=== PATIENT | male | born 1995 | race Caucasian/White ===

== ENCOUNTER 2017-09-13 16:21 | Emergency (ER) | payer OTHER, SELFPAY ==
[2017-09-13 17:07] VITALS: BP 150/97; PULSE 92; RESP 12; TEMP 37.9; O2SAT 98
--- NOTE | 2017-09-13 17:17 | DI.REPORT_ITS ---
SYMPTOM/DIAGNOSIS: TRAUMA LAST NIGHT, PAIN PROXIMALLY, LIMITED ROM RIGHT HUMERUS: No soft tissue or bony abnormality is seen. SUMMARY: No acute abnormality is evident.
--- NOTE | 2017-09-13 17:20 | ED.GENADUL_ITS ---
Disposition Clinical Impression: Contusion, arm, upper Disposition: HOME Condition: Fair Instructions: Contusion in Adults (ED) Additional Instructions: Encourage rest, ice, elevation. Tylenol and/or ibuprofen as needed for discomfort. Avoid activities that cause increased discomfort. Try to work on range of motion gently. If you develop new or worsening symptoms please seek care urgently once again. I have asked her home care physical therapist help facilitate follow-up with primary care. If you develop any new or worsening symptoms please seek care urgently once again. Referrals: Primary Care Provider [Outside] Forms: Work Release Medical Decision Making - Radiology Data Radiology results: report reviewed X-ray reviewed by radiologist. They advised no acute abnormalities noted. - Medical Decision Making Patient presents today with chief complaint of proximal right humeral pain. Patient fell and struck her arm against a stair yesterday. Since that time has had diminished range of motion. Exam is concerning for pain and diminished range of motion particularly over the proximal right humerus. Patient is right- hand dominant. Will obtain x-ray to evaluate for possible fracture. Patient will be given Tylenol and ibuprofen to help with discomfort. Discussed this plan with the patient was in agreement. X-ray without significant abnormality. As there is no palpable muscular defect , no abnormalities on x-ray feel that this is likely contusion. Encourage rest , ice, elevation. And/or ibuprofen as needed for discomfort. 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 Advised he will need follow-up with primary care. Patient does not have primary care provider. I will have our home care physical therapist help facilitate with follow-up. Advised he should be seen in 2 weeks if pain persists. Advised he may seek care urgently if he develops new or worsening symptoms. All his questions and concerns were addressed and he is in agreement this plan. History of Present Illness - General Chief complaint: Orthopedic Stated complaint: ARM INJURY Time Seen by Provider: 09/13/17 17:00 Source: patient, RN notes reviewed Mode of arrival: ambulatory Limitations: no limitations - History of Present Illness Initial comments: Patient is a right-hand dominant 22-year-old male presenting today with chief complaint of right humerus pain. He reports that yesterday he tripped and fell. Reports falling forward and striking the proximal aspect of the right humerus against the step edge. He denies other injury the time the incident. Did not strike his head. Denies any neck pain. Denies any head pain, nausea vomiting. Denies any shortness of breath or chest pain. Denies any numbness or tingling in the right hand. Denies any pain with range of motion of the hand , wrist or elbow. States the pain is primarily with movement of the shoulder. Reports the shoulder has been quite weak today and that he is need to use the contralateral arm to help with movement. - Related Data Loratadine 1 tab PO DAILY #30 tab 11/11/14 Ibuprofen 600 mg PO DAILY PRN 09/13/17 Allergies Allergy/AdvReac Type Severity Reaction Status Date / Time No Known Allergies Allergy Unverified 09/13/17 17:11 Review of Systems Constitutional: no symptoms reported. denies: chills, fever, malaise Eyes: denies: vision change Respiratory: no symptoms reported Cardiovascular: denies: chest pain Gastrointestinal: denies: abdominal pain, nausea, vomiting Musculoskeletal: as per HPI Skin: denies: rash, lesions, change in color Neurological: as per HPI. denies: headache, numbness, paresthesias, abnormal gait Past Medical History - Past Medical History Medical history: no medical history Surgical history: no surgical history General Exam - General Limitations: no limitations General appearance: alert, in no apparent distress - Head Head exam: Present: atraumatic - Eye Eye exam: Present: normal apperance - Neck Neck exam: Present: normal inspection, full ROM. Absent: tenderness - Respiratory Respiratory exam: Present: normal lung sounds bilaterally. Absent: respiratory distress, chest wall tenderness - Cardiovascular Cardiovascular Exam: Present: regular rate, normal rhythm, normal heart sounds - Rectal Rectal exam: Present: deferred - Extremities Exam Extremities exam: Present: tenderness, normal capillary refill. Absent: normal inspection (Exam the patient's right upper extremity significant for pain on palpation over the lateral aspect of the proximal humerus. Range of motion is limited secondary to pain. Is able to forward elevate to approximately 75 . Full range of motion of the elbow, wrist, hands. 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 No sensory deficits. No swelling, ecchymosis or deformity is palpable.), full ROM , joint swelling - Neurological Exam Neurological exam: Present: alert, normal gait. Absent: motor sensory deficit - Psychiatric Psychiatric exam: Present: normal affect, normal mood - Skin Skin exam: Present: warm, dry, intact, normal color Course Vital Signs - 24 hr 09/13/17 17:07 Temperature 37.9 C H Pulse 92 H Respiratory 12 Rate Blood Pressure 150/97 Pulse Oximetry 98
--- NOTE | 2017-09-13 17:48 | DI.VRAD_ITS ---
EXAM: XR Right Humerus, 2 or More Views EXAM DATE/TIME: 09/13/2017 5:37 PM CLINICAL HISTORY: 22 years old, male; Pain and injury or trauma; Fall; Initial encounter; Upper arm; Right TECHNIQUE: XR Right humerus 2 or more views. COMPARISON: No relevant prior studies available. FINDINGS: Bones/joints: Normal. Soft tissues: Normal. IMPRESSION: No acute findings. Dictated and Authenticated by: Pollo Kuo MD. Ordering:ABEL MUHAMMAD MD
[2017-09-13] MEDS: Acetaminophen 500 MG TAB 1000 MG PO (17:51)
[2017-09-13] MEDS: Ibuprofen 600 MG TAB PO (17:51)
--- NOTE | 2017-09-14 11:37 | PDOC.ERCMPRO ---
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 Referral faxed to [facility]. Patient was a . Pediatric patient.
--- NOTE | 2017-09-14 11:38 | CMPROGNOTE_ITS ---
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 Referral faxed to [facility]. Patient was a . Pediatric patient.
== END 2017-09-13 18:04 | disposition home or self-care (01) ==
PROVIDERS: Emergency Provider Student in an Organized Health Care Education/Training Program
DX: S40.021A Contusion of right upper arm, initial encounter (principal); W01.198A Fall on same level from slipping, tripping and stumbling with subsequent striking against other object, initial encounter
CPT/HCPCS: 99283; 73060; 99282